=== PATIENT | male | born 1965 | race Caucasian/White ===

== ENCOUNTER 2016-07-09 21:55 | Emergency (ER) | payer OTHER ==
[~2016-07-09] VITALS: Ht 172.7 cm; Wt 81.8 kg
[~2016-07-09 21:55] MED LIST: ADV25050 INH
[2016-07-09 22:01] VITALS: Ht 172.7 cm; Wt 81.8 kg
[2016-07-09] MEDS ORDERED: KETOROLAC 60 MG INJ IM STA (22:55)
[2016-07-09] MEDS ORDERED: DEXAMETHASONE 10 MG/ML 1 ML INJ IM ONE (23:00)
[2016-07-09] MEDS ORDERED: CLINDAMYCIN 300 MG INJ IM ONE (23:00)
--- NOTE | 2016-07-09 23:17 | ERD ---
ER Documentation Chief Complaint Date/Time DATE: 07/09/16 TIME: 23:[address]/EAR PAIN SINCE SAT. MEDS/ATB RX STATES INEFFECTIVE HPI This a 50-year-old male with sore throat for the past 2 days with difficulty swallowing. Patient has history of multiple episodes of strep throat the past. Complains of fevers and chills. Denies any difficulty breathing. ROS All systems reviewed and are negative except as per history of present illness. Medications Home Meds Reported Medications Salmeterol Xinaf/Fluticasone* (Advair*) 250-50 Diskus Inhaler, 1 PUFF INH BID, INH 03/24/14 Allergies Allergies: Coded Allergies: Penicillins (Verified Allergy, Unknown, 07/09/16) PMhx/Soc Medical and Surgical Hx: pt denies Surgical Hx History of Surgery: No Anesthesia Reaction: No Hx Neurological Disorder: No Hx Respiratory Disorders: No Hx Cardiac Disorders: No Hx Psychiatric Problems: No Hx Alcohol Use: Yes ([id number]) Hx Substance Use: No Hx Tobacco Use: No Smoking Status: Unknown if ever smoked Physical Exam Vitals Vital Signs Date Time Temp Pulse Resp B/P Pulse Ox O2 Delivery O2 Flow Rate FiO2 07/09/16 22:01 98.2 89 20 130/82 99 Physical Exam Const: [] Head: Atraumatic Eyes: Normal Conjunctiva ENT: Right peritonsillar exudate with no uvular deviation. Neck: Full range of motion..~ No meningismus. Resp: Clear to auscultation bilaterally Cardio: Regular rate and rhythm, no murmurs Abd: Soft, non tender, non distended. Normal bowel sounds Skin: No petechiae or rashes Back: No midline or flank tenderness Ext: No cyanosis, or edema Neur: Awake and alert Psych: Normal Mood and Affect Results 24 hrs Current Medications Medications (Trade) Dose Ordered Sig/Ruby Route PRN Reason Start Time Stop Time Status Last Admin Dose Admin Ketorolac Tromethamine (Toradol) 60 mg ONCE STAT IM 07/09/16 22:55 07/09/16 22:56 DC Dexamethasone (Decadron) 10 mg ONCE ONCE IM 07/09/16 23:00 07/09/16 23:01 DC Clindamycin Phosphate (Cleocin) 600 mg ONCE ONCE IM 07/09/16 23:00 5/15/17 23:01 DC Procedures/MDM Medical decision-makin-year-old male with a list with exudative pharyngitis. Patient will be treated based on [facility] criteria. Discharged home with clindamycin given the patient is allergic to penicillin based antibiotics. Departure Diagnosis: Primary Impression: Sore throat Condition: Stable FRED FLOR July 09, 2016 23:17
[2016-07-09] MEDS ORDERED: PRED20TA PO (23:21)
[2016-07-09] MEDS ORDERED: CLIN-73 PO (23:21)
[2016-07-09] MEDS ORDERED: IBUP-1542 PO (23:21)
[2016-07-09 23:45] VITALS: BP 134/86; RESP 17; TEMP 98.7
== END 2016-07-09 23:46 | disposition home or self-care (01) ==
LOC: E/R 21:55
DX: J02.9 Acute pharyngitis, unspecified (principal)
CPT/HCPCS: 96372; J1100; J1885; Z7502; Z7610

== ENCOUNTER 2017-05-02 03:16 | Emergency (ER) | END 2017-05-02 08:36 | disposition home or self-care (01) ==

== ENCOUNTER 2017-05-05 17:31 | Emergency (ER) | END 2017-05-05 20:40 | disposition home or self-care (01) ==

== ENCOUNTER 2017-05-07 07:04 | Emergency (ER) | END 2017-05-07 10:08 | disposition left against medical advice (07) ==

== ENCOUNTER 2018-10-06 09:10 | Day surgery (SDC) | payer OTHER ==
[~2018-10-06] VITALS: Ht 170.2 cm; Wt 93.2 kg
[~2018-10-06 09:10] MED LIST changes: -ADV25050 INH; +ADV25050 INHALATION; +ALBU8.5H8 INH; +CETI10TA19 PO; +HYDR25TA6 PO; +LORA-441 PO
[2018-10-06] MEDS ORDERED: PROPOFOL 40 ML ONE (10:02)
--- NOTE | 2018-10-06 10:02 | PREAC ---
Date/Time of Note Date/Time of Note DATE: 10/06/18 TIME: 10:01 Anesthesia Eval and Record Evaluation Time Pre-Procedure Interview DATE: 10/06/18 TIME: 10:01 Age 53 Sex male NPO: 8 hrs Preoperative diagnosis Screening Planned procedure Colonoscopy Past Medical History Past Medical History: Includes Cardio: HTN, Dyslipidemia Pulm: Asthma Surgery & Anesthesia Issues No known issue Meds Anticoagulation: No Beta Althea within 24 hr: No Reason Beta Althea not given: Pt. not on B-Althea Active Scripts Hydrochlorothiazide* (Hydrochlorothiazide*) 25 Mg Tab, 25 MG PO DAILY, #30 TAB Prov:CHIDI CHRISTINA MD 05/05/17 Albuterol Sulfate* (Proair HFA*) 8.5 Gm Hfa.aer.ad, 2 PUFF INH Q6H PRN for WHEEZING AND SOB, #1 INHALER Prov:CHIDI CHRISTINA MD 05/05/17 Reported Medications Albuterol Sulfate* (Proair HFA*) 8.5 Gm Hfa.aer.ad, 2 PUFF INH Q4H PRN for WHEEZING AND SOB, #1 INHALER 10/06/18 Hydrochlorothiazide* (Hydrochlorothiazide*) 25 Mg Tab, 25 MG PO DAILY, #30 TAB 10/06/18 Salmeterol Xinaf/Fluticasone* (Advair*) 250-50 Diskus Inhaler, 1 INH INHALATION BID, #1 INHALER 05/05/17 Discontinued Reported Medications Cetirizine Hcl* (Cetirizine Hcl*) 10 Mg Tablet, 10 MG PO DAILY, #30 TAB 05/05/17 Discontinued Scripts Lorazepam* (Ativan*) 0.5 Mg Tablet, 0.5 MG PO Q8H PRN for ANXIETY, #10 TAB Prov:CHIDI CHRISTINA MD 05/05/17 Meds reviewed: Yes Allergies Coded Allergies: Penicillins (Verified Allergy, Unknown, 05/05/17) Allergies Reviewed: Yes Labs/Studies Labs Reviewed: Reviewed by anesthesiologist test: N/A Studies: ECG (n/a), CXR (n/a) Pre-procedure Exam Airway: Adequate mouth opening, Adequate thyromental dist Mallampati: Mallampati II Teeth: Normal Lung: Normal Heart: Normal ASA Physical Status ASA physical status: 3 Emergency: None Planned Anesthetic General/MAC: MAC Planned Pain Management Parenteral pain med Pre-operative Attestations Prior to commencing anesthesia and surgery, the patient was re-evaluated, there was verification of: *The patient's identity *The results of appropriate recent lab work and preoperative vital signs *The above evaluation not changing prior to induction *Anesthetic plan, risk benefits, alternative and complications discussed with patient/family; questions answered; patient/family understands, accepts and wishes to proceed. MAGEN ZHOU MD Oct 06, 2018 10:02
[2018-10-06 10:03] VITALS: Ht 170.2 cm; Wt 93.2 kg
[2018-10-06 10:04] VITALS: BP 141/82; PULSE 77; RESP 20
--- NOTE | 2018-10-06 10:30 | PAC ---
Date/Time of Note Date/Time of Note DATE: 10/06/18 TIME: 10:29 Post-Anesthesia Notes Post-Anesthesia Note Last documented vital signs T: 98.0 Activity: WNL Respiratory function: WNL Cardiovascular function: WNL Mental status: Baseline Pain reasonably controlled: Yes Hydration appropriate: Yes Nausea/Vomiting absent: Yes MAGEN ZHOU MD Oct 06, 2018 10:30
[2018-10-06 10:55] VITALS: BP 123/84; PULSE 72; RESP 19
== END 2018-10-06 16:47 | disposition home or self-care (01) ==
LOC: GIL 09:10
PROVIDERS: ATTEND Internal Medicine Gastroenterology
DX: Z12.11 Encounter for screening for malignant neoplasm of colon (principal); D12.6 Benign neoplasm of colon, unspecified; K64.8 Other hemorrhoids
CPT/HCPCS: 45380; 88305; Z7610